=== PATIENT | male | born 1980 | race Caucasian/White ===

== ENCOUNTER 2021-01-01 06:27 | Emergency (ER) | payer BC ==
[2021-01-01 08:11] LABS: HEMOGLOBIN 15.1 gm/dl (14.0-17.5); RED BLOOD COUNT 5.32 M/UL (4.20-5.50); WHITE BLOOD COUNT 10.6 K/UL (4.5-11.0)
[2021-01-01 08:24] LABS: BUN/CREATININE RATIO 12 (0-10)
[2021-01-01] MEDS ORDERED: FLOMAX0.4 MG PO (09:12)
[2021-01-01] MEDS ORDERED: TORADOL 10 MG T10 MG PO (09:12)
== END 2021-01-01 10:03 | disposition home or self-care (01) ==
LOC: ER1 06:27
PROVIDERS: Physician Assistant
DX: N13.2 Hydronephrosis with renal and ureteral calculous obstruction (principal); Z90.49 Acquired absence of other specified parts of digestive tract
CPT/HCPCS: 80053; 81001; 85025; 96374; 96375; 99284; J1885; J2405